=== PATIENT | male | born 1995 | race Caucasian/White ===

== ENCOUNTER 2016-05-08 15:26 | Emergency (ER) | payer OTHER ==
[~2016-05-08] VITALS: Ht 180.3 cm; Wt 63.0 kg
[2016-05-08 17:22] LABS: CHLORIDE 106 mEq/L (99-109); POTASSIUM 4.3 mEq/L (3.7-5.4); SODIUM 141 mEq/L (136-147)
[2016-05-08 17:25] LABS: GLUCOSE 89 mg/dL (70-99)
[2016-05-08 17:26] LABS: ANION GAP 8 MEQ/L (2-14)
[2016-05-08 17:27] LABS: TOTAL BILIRUBIN 0.5 mg/dL (0.0-1.0)
[2016-05-08 17:28] LABS: ALKALINE PHOSPHATASE 81 IU/L (3-129); GFR ESTIMATE (CALCULATED) > 59 mL/min/
[2016-05-08 17:29] LABS: UREA NITROGEN (BUN) 14 mg/dL (9-23)
[2016-05-08] MEDS ORDERED: LOTRIMIN ULTRA12 GM TP (18:21)
[2016-05-08 19:53] VITALS: BP 140/75
== END 2016-05-08 19:55 | disposition home or self-care (01) ==
LOC: EME 15:26
PROVIDERS: Emergency Medicine
DX: F16.988 Hallucinogen use, unspecified with other hallucinogen-induced disorder (principal); B35.3 Tinea pedis; F42.9 Obsessive-compulsive disorder, unspecified; F12.20 Cannabis dependence, uncomplicated; Z04.6 Encounter for general psychiatric examination, requested by authority; Z88.2 Allergy status to sulfonamides; F17.200 Nicotine dependence, unspecified, uncomplicated
CPT/HCPCS: 80053; 90839; 99281; 99283